=== PATIENT | male | born 1985 | race Caucasian/White ===

== ENCOUNTER 2021-08-21 14:27 | Emergency (ER) | payer OTHER ==
[~2021-08-21 14:27] MED LIST: ANTIVERT 25MG T25 MG PO; BACTRIM DS TAB1 EACH PO; BACTROBAN OINT22 GM EXT; CYCLOBENZAPRINE10 MG PO; IBU800 MG PO; KEFLEX CAP 500500 MG PO; NAPROSYN500 MG PO
[2021-08-21] MEDS ORDERED: AMLODIPINE BESYL5 MG PO (15:34)
== END 2021-08-21 15:57 | disposition home or self-care (01) ==
LOC: ER1 14:27
DX: I10 Essential (primary) hypertension (principal)
CPT/HCPCS: 99283

== ENCOUNTER 2021-10-31 16:37 | Emergency (ER) | payer OTHER ==
[~2021-10-31 16:37] MED LIST changes: +AMLODIPINE BESYL5 MG PO
[2021-10-31 18:15] LABS: HEMOGLOBIN 14.8 gm/dl (14.0-17.5); RED BLOOD COUNT 4.71 M/UL (4.20-5.50); WHITE BLOOD COUNT 17.5 K/UL (4.5-11.0)
[2021-10-31 18:33] LABS: BUN/CREATININE RATIO 7 (0-10)
== END 2021-11-01 07:36 | disposition short-term general hospital (02) ==
LOC: ER1 16:37
PROVIDERS: Physician Assistant Medical
DX: K52.9 Noninfective gastroenteritis and colitis, unspecified (principal); K74.60 Unspecified cirrhosis of liver; N39.0 Urinary tract infection, site not specified; Z20.822 Contact with and (suspected) exposure to COVID-19
CPT/HCPCS: 71045; 80053; 80307; 81001; 82550; 82553; 84484; 85025; 93005; 96374; 99285; G0480; J0696; U0002